=== PATIENT | female | born 1950 | race Caucasian/White ===

== ENCOUNTER → 2016-06-28 | Outpatient (CLI) | payer MEDICARE, MEDICAID ==
[~2016-06-28] MED LIST: B12,B-12,B 12500 MC1 PO; BIAXIN500 MG PO; DIFLUCAN50 MG PO; DUONEB 3 MG/3 ML3 M1 INH; FLONASE ALLERG9.9 ML NS; LEVAQUIN750 M1 PO; LEVOFLOXACIN500 MG PO; LOVASTATIN20 MG PO; MASON NATURAL2000 IU PO; METFORMIN500 MG PO; NOVAPLUS V0.09 MG/Ac IH; PREDNISONE10 MG PO; PREDNISONE50 MG PO; PROAIR HFA8.5 GM IH; ROBITUSSIN5 ML PO; SINGULAIR10 M1 PO; SYMBICORT1 AER INH; VICODIN 500 MG-1 TAB PO; VOLTAREN50 M1 PO
== END | disposition home or self-care (01) ==
LOC: RAD 10:43
DX: M47.896 Other spondylosis, lumbar region (principal); G89.29 Other chronic pain; M25.78 Osteophyte, vertebrae

== ENCOUNTER → 2017-01-25 | Outpatient (CLI) | payer MEDICARE, MEDICAID | END | disposition home or self-care (01) | LOC: RAD 15:50 | DX: M54.2 Cervicalgia (principal); R20.8 Other disturbances of skin sensation ==

== ENCOUNTER → 2017-03-28 | Outpatient (CLI) | payer MEDICARE, MEDICAID | END | disposition home or self-care (01) | LOC: RAD 14:45 | DX: M25.511 Pain in right shoulder (principal) ==

== ENCOUNTER → 2017-04-16 | Outpatient (CLI) | payer MEDICARE, MEDICAID | END | disposition home or self-care (01) | LOC: RAD 16:36 | DX: J20.9 Acute bronchitis, unspecified (principal); E11.9 Type 2 diabetes mellitus without complications; J44.9 Chronic obstructive pulmonary disease, unspecified; J45.909 Unspecified asthma, uncomplicated; F17.200 Nicotine dependence, unspecified, uncomplicated ==

== ENCOUNTER → 2017-04-20 | Outpatient (CLI) | payer MEDICARE, MEDICAID | END | disposition home or self-care (01) | LOC: MRI 03:38 | DX: M19.011 Primary osteoarthritis, right shoulder (principal) ==

== ENCOUNTER → 2017-09-14 | Outpatient (CLI) | payer MEDICARE, MEDICAID ==
[2017-09-14 14:12] LABS: CREATININE 1.19 mg/dL (0.55-1.02)
[2017-09-14 14:19] LABS: THYROID STIM HORMONE (HS) 2.06 uIU/ml (0.358-4.75)
== END | disposition home or self-care (01) ==
LOC: LAB 01:22 → MRI 14:00 → LAB 14:00
PROVIDERS: Psychiatry & Neurology Neurology
DX: G54.0 Brachial plexus disorders (principal); Z79.899 Other long term (current) drug therapy

== ENCOUNTER 2017-12-05 13:32 | Inpatient (IN) | payer MEDICARE, MEDICAID ==
[~2017-12-05] VITALS: Ht 162.5 cm; Wt 86.2 kg
--- NOTE | ~2017-12-05 | PR ---
[place], [place] PROGRESS NOTE NAME: RENETTA KWONG UNIT #: [id number] ROOM: 411 DOCTOR: CRYSTAL WAY MD BIRTHDATE: [birth year] DOS: 12/07/2017 PULMONARY PROGRESS NOTE SUBJECTIVE: The patient was independently seen and examined in [id number] encounter, history was confirmed. Physical examination performed. Labs were reviewed. Note done by the site medical director was approved. The patient was noted comfortable at this time, resting, sitting on the bed. She reported partial reduction in symptoms of shortness of breath, coughing, and other symptoms. She denies symptoms of chest pain, general weakness, and fatigue were noted partially decreased. Continue getting oxygen supplementation by nasal cannula. OBJECTIVE: VITAL SIGNS: Normal temperature, respiratory rate is 20, heart rate is 63, Blood pressure is 129/62 this morning. Pulse ox saturation on 2 liters nasal cannula is 93% saturation recorded. HEENT: On examination, no acute change. Chronic obesity. NECK: Supple. CARDIOVASCULAR SYSTEM: S1, S2 is audible. LUNGS: Moderate general reduction in breath sounds bilaterally, scattered expiratory wheezing, no crackles. ABDOMEN: Soft, nontender. LABORATORY DATA: CBC, WBC count is 16.9, hemoglobin is 10.6, hematocrit is 32.6, and platelet count is normal. The BMP of the patient, BUN is normal, creatinine is 1.88. The glucose is noted as 277. IMPRESSION: 1. The patient has been currently noted with ongoing acute exacerbation of chronic obstructive pulmonary disease with bilateral acute pneumonia, which appeared to be nodular in appearance. 2. Chronic obesity as well. 3. Acute kidney injury, which has resolved markedly. 4. Suspicion of obstructive sleep apnea disorder. PLAN OF MANAGEMENT: Continue current antibiotics, bronchodilators, and oxygen supplementation. Monitor clinical status. Supportive therapy, other plan of management, and care plan. No changes in medication needs to be done today. [place], [place] PROGRESS NOTE NAME: RENETTA KWONG UNIT #: [id number] ROOM: 411 DOCTOR: CRYSTAL WAY MD BIRTHDATE: [birth year] CRYSTAL MALDONADO MD CM:PNTRANS [id number] CRYSTAL WATTS MD 12/08/172 interface
--- NOTE | ~2017-12-05 | PR ---
[place], [place] PROGRESS NOTE NAME: [id number] UNIT #: [id number] ROOM: 411 DOCTOR: JOEL WATTS MD,CRYSTAL BIRTHDATE: [birth year] DOS: 12/08/2017 PULMONARY PROGRESS NOTE SUBJECTIVE: The patient was noted comfortable this morning of assessment. She has been assessed for home oxygen supplementation does require oxygen supplementation at home, but comfortably resting, shortness of breath, cough, all the other symptoms, which has been noted for admission, improved markedly. OBJECTIVE: VITAL SIGNS: Normal temperature, respiratory rate 20, heart rate 70, blood pressure 115/65 this afternoon. The pulse ox saturation on 2 liters nasal cannula 94% saturation. HEENT: Head was atraumatic. Eyes nonicterus. NECK: Supple. CARDIOVASCULAR: S1, S2 audible. LUNGS: Noted without any wheezing or crackles today. ABDOMEN: Soft, nontender, bowel sounds present. EXTREMITIES: The patient noted without acute edema. IMPRESSION: Resolving acute hypoxic respiratory failure, acute exacerbation of chronic obstructive pulmonary disease, history of chronic obesity, nodular infiltration noted on the lungs with acute pneumonia. PLAN OF TREATMENT: The patient has been considered from discharge will require oxygen supplementation, oral antibiotic as Levaquin for the next 7 days. Tapering dose of prednisone, bronchodilators. Abstinence tobacco use. Outpatient assessment was recommended post-discharge in about 3 weeks to reassess in the office for pulmonary problems. CRYSTAL MALDONADO MD CM:PNTRANS [id number] CRYSTAL WATTS MD 12/09/173 interface
--- NOTE | ~2017-12-05 | CON ---
[place], [place] REPORT OF CONSULTATION NAME: RENETTA KWONG [facility] #: [id number] UNIT #: [id number] ROOM: 411 DOCTOR: JOEL WATTS MDCRYSTAL BIRTHDATE: [birth year] DOS: 12/06/2017 PULMONARY CONSULTATION, EVALUATION, AND MANAGEMENT CONSULTATION REQUESTED BY: Hospitalist. REASON FOR CONSULTATION: For assessment of COPD exacerbation. HISTORY OF PRESENT ILLNESS: The patient was independently seen and examined, [id number] encounter, history was confirmed. Physical examination was performed. Labs were personally reviewed. All the radiology data were reviewed. The assessment for today's note was personally completed. Note done by the medical physiologist was approved as well. This is a 67-year-old white female patient who presented to the hospital and admitted under the hospitalist service on the date of 12/05/2017. The patient presented to the hospital as she has been reported symptoms of chest congestion and cold for the past several days. The symptoms have been noted progressively worsened. She was seen by the primary care physician was prescribed an antibiotic, which noted ineffective. Symptoms have been noted progressive for the last couple of days prior to the hospitalization. The patient had been currently admitted to the hospital, being started treatment for the acute exacerbation of COPD. The patient denies symptoms of fever or chills with that, but general weakness, fatigue was noted. She was also noted with acute pneumonic infiltration with a chest CT scan as well. REVIEW OF SYSTEMS: CONSTITUTIONAL: She does have symptoms of fatigue and tiredness without symptoms of chills or fever. EYES: Denies any burning, redness, or tenderness. EARS, NOSE, AND THROAT: Denies sore throat, hoarseness, otalgia, postnasal drainage or epistaxis. CARDIOVASCULAR: Denies anginal pain, edema, pain of the lower extremity. GASTROINTESTINAL: Denies dysphagia, nausea, vomiting, diarrhea, abdominal pain, hematemesis, melena, or hematochezia. SKIN: Denies abnormal lesions or rashes. GENITOURINARY SYMPTOMS: No dysuria and suprapubic hematuria. MUSCULOSKELETAL: No acute joint pain, redness, or tenderness. CENTRAL NERVOUS SYSTEM: Denies dizziness Headache, diplopia, syncopal episode. Remaining systems were reviewed. They were noted all negative. PAST MEDICAL HISTORY: 1. COPD diagnosis. 2. Type 2 diabetes mellitus. 3. History of Hodgkin's lymphoma, previously treated. 4. Essential hypertension. 5. Hyperglycemia. 6. Chronic obesity. [place], [place] REPORT OF CONSULTATION NAME: RENETTA KWONG [facility] #: [id number] UNIT #: [id number] ROOM: 411 DOCTOR: JOEL WATTS MD,CRYSTAL BIRTHDATE: [birth year] PAST SURGICAL HISTORY: 1. Complete hysterectomy. 2. Right knee arthroscopy. 3. Bilateral hand surgery. SOCIAL HISTORY: She is , has 1 child, lives at home. Denies history of alcohol use or any illicit drugs. Tobacco use was known with chronic tobacco use in the past, but currently denies any tobacco use. FAMILY HISTORY: History about father was unknown. Mother at 86 of complication of dementia. HOME MEDICATIONS: Listed use of Symbicort HFA, albuterol sulfate, DuoNeb, lovastatin, metformin, Singulair, Flonase, and diclofenac. DRUG ALLERGIES: Noted allergies: 1. NYQUIL. 2. CODEINE PHOSPHATE. PHYSICAL EXAMINATION: GENERAL: This is a 67-year-old female the patient who has been noted currently awake and alert without acute distress at this time of assessment. VITAL SIGNS: Height were recorded by the nursing staff of 5 feet 4 inches, weight of 190 pounds. Normal temperature, respiratory rate 18-16, heart rate 64-93, blood pressure 111/34-125/48. The pulse ox saturation on 2 liters nasal cannula was 93% saturation. Resting room air 90% saturation. HEENT: Chronic moderate obesity. Head was atraumatic. Eyes nonicterus. NECK: Supple. CARDIOVASCULAR: S1, S2 audible. LUNGS: Noted bilateral diffuse expiratory wheezing with decreased breath sounds. There were no crackles. ABDOMEN: Soft and obese. Bowel sounds present. EXTREMITIES: Without edema, clubbing, cyanosis. VISIBLE SKIN: No lesions or rashes. CENTRAL NERVOUS SYSTEM: Cranial nerves 2-12 intact. MUSCULOSKELETAL: Without any deformities. LABORATORY DATA: Lactic acid yesterday 1.7, that were normal. CBC, sed admission elevated white cell count 20.6, otherwise normal CBC. CMP of yesterday on admission, BUN 14, creatinine 1.9. Troponin noted normal. CBC of the patient this morning, WBC count 14.9, hemoglobin 11.1, remaining CBC normal. CMP this morning, BUN 16, creatinine 1.10, glucose 254. The chest x-ray that was done in the Emergency Room was reviewed, shows patchy infiltration noted in the lungs. CT scan of the chest that was done on this admission of 12/06/2007 was personally reviewed and it shows patchy area, small consolidation, nodular opacity noted predominantly in the left upper, lingula, and lower lobe. The right lung appeared to be clear. Lack of the IV contrast, the patient does limit the assessment of the mediastinal structure. There was no gross lymphadenopathy was seen. [place], [place] REPORT OF CONSULTATION NAME: RENETTA KWONG UNIT #: [id number] ROOM: 411 DOCTOR: JOEL WATTS MD,CRYSTAL BIRTHDATE: [birth year] IMPRESSION: 1. The patient who has been currently admitted to the hospital noted with acute exacerbation of chronic obstructive pulmonary disease, acute bronchitis, and pneumonia. The patient with atypical etiology would be considered, failed to respond to the outpatient treatment. General weakness and fatigue related to that. Acute kidney injury was also noted secondary to prerenal azotemia. The patient seemed to be improved after the hospitalization with hydration. 2. History of chronic obesity. 3. Suspicion of obstructive sleep apnea disorder. 4. History of nicotine abuse. PLAN OF MANAGEMENT: Workup for the atypical etiology for infection would be ordered. Ordered sputum for Gram stain and culture. Urine for legionella antigen and blood for mycoplasma antibody, and the urine for strep antigen will be ordered. Other additional treatment changes will be ordered based on progression of the illness. Titrate oxygen supplementation in case of oxygen saturation less than 90%. Continue nicotine placement patches and other plan therapy for the patient's care as in progress with usual care. Other supportive plan of management and treatments. Change in the treatment will be made based on progression of the illness. Respiratory viral panel will be ordered to exclude viral etiology. Solu-Medrol, will be currently continued same dose. Monitor treatment of the hyperglycemia related to use of corticosteroid and diabetes mellitus. CRYSTAL MALDONADO MD CM:CONSTR:REPORT OF CONSULTATION 1310 12/17/17 0825 interface
--- NOTE | ~2017-12-05 | CON ---
[place], [place] REPORT OF CONSULTATION NAME[id number] UNIT #: [id number] ROOM: 411 DOCTOR: ALLAN BAGLEY DO BIRTHDATE: [birth year] DOS: 12/06/2017 REQUESTING PHYSICIAN: Hospitalist service. REASON FOR CONSULTATION: Acute exacerbation of COPD. HISTORY OF PRESENT ILLNESS: The patient is a 67-year-old female who presented to the ED on 12/05/2017 due to numerous complaints that include generalized weakness and shortness of breath. The patient states that 4 days ago, this weekend, she started experiencing nausea and soreness of her throat and this progressed with sneezing, rhinitis and coughing productive for green sputum. The following day, she felt weak, fatigued and without energy. She subsequently presented to her primary care provider who prescribed her a course of azithromycin. Despite this, her symptoms did not improve and she, therefore, presented to the ED yesterday on 12/05/2017 due to her worsening symptoms. The patient denies use of home oxygen. 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 She states that at home, she uses Symbicort and a Ventolin inhaler p.r.n. as well as nebulizer albuterol treatments. Chest x-ray obtained in the ED showed retrosternal pleural thickening, but otherwise unremarkable findings. The patient was admitted to the general medical floor with telemetry monitoring for treatment of sepsis secondary to pneumonitis and an acute exacerbation of COPD. The Pulmonary Medicine Service was consulted for further management of the patient's suspected acute exacerbation of COPD. PAST MEDICAL HISTORY: This includes COPD, type 2 diabetes, hypertension, history of Hodgkin's lymphoma, reportedly treated 30 years ago with chemotherapy, neuropathic pain and history of avascular necrosis of the lunate. PAST SURGICAL HISTORY: This includes history of a surgical repair of a patellar fracture of the right knee, history of hysterectomy and history of bilateral hand surgery. FAMILY HISTORY: The patient reports her mother at age 86 from dementia and her past medical history included history of diabetes and heart disease. The patient reports that her father was unknown to her. ALLERGIES: THESE INCLUDE ALLERGIES TO CODEINE, TO DEXTROMETHORPHAN, TO PSEUDOEPHEDRINE AND TO DOXYLAMINE. SOCIAL HISTORY: The patient denies use of alcohol or any abuse of illicit drugs. She denies use of tobacco. CURRENT MEDICATIONS: These include IV Levaquin 750 mg every 48 hours, Nicoderm patch 14 mg daily as needed for the urge to smoke, guaifenesin 1200 mg every 12 hours, levocetirizine 5 mg daily, Singulair 10 mg daily, subcutaneous Lovenox 40 mg daily, IV normal saline at 100 mL an hour, gabapentin 300 mg before bed, simvastatin 20 mg before bed, IV Solu-Medrol 40 mg every 12 hours, sliding scale insulin and DuoNeb treatments every 4 hours. REVIEW OF SYSTEMS: [place], [place] REPORT OF CONSULTATION NAME: RENETTA KWONG UNIT #: [id number] ROOM: 411 DOCTOR: ALLAN BAGLEY DO BIRTHDATE: [birth year] GENERAL: Denies fever or chills. HEENT: Admits to worsening vision, which is a chronic issue for her. Denies changes in hearing. Denies eye pain. Denies ear pain. Admits to sore throat and admits to sneezing. Admits to rhinitis. CARDIOVASCULAR: Denies chest pain. Admits to palpitations. Denies diaphoresis. RESPIRATORY: Admits to shortness of breath. Admits to dyspnea on exertion. Admits to coughing productive for green sputum. Admits to wheezing. ABDOMEN: Admits to nausea. Denies vomiting. Denies abdominal pain. Denies constipation. Denies diarrhea, melena or hematochezia. GENITOURINARY: Denies dysuria, hematuria, increased urinary frequency or urgency. NEUROLOGIC: Denies lightheadedness or dizziness. PSYCHOLOGICAL: Denies anxiety, depression or substance abuse. ENDOCRINE: Denies cold intolerance. Denies heat intolerance. SKIN: Denies any new rashes, lesions or ulcerations. PHYSICAL EXAMINATION: VITAL SIGNS: Temperature 97.6 degrees Fahrenheit, heart rate 64, respiratory rate 20, blood pressure 92/50, pulse oximetry 91% on 2 liters via nasal cannula. GENERAL APPEARANCE: The patient was awake, alert, responsive, cooperative and in no acute distress. HEENT: Head was normocephalic and atraumatic. No lesions or ulcerations were noted to eyes. NECK: Trachea appears midline. HEART: Regular rate and rhythm were noted. Positive S1, S2 sounds were heard. No murmurs, rubs or gallops were appreciated. Bilateral lower extremities were without edema. PULMONARY: Lungs with decreased breath sounds. Wheezing was heard. No rhonchi or rales were appreciated. ABDOMEN: Soft, nontender to palpation. Bowel sounds were present. The abdomen was obese. EXTREMITIES: Bilateral lower extremities were without edema. No clubbing, cyanosis or erythema was noted. NEUROLOGIC: The patient was grossly without any focal neurologic deficits. Cranial nerves 2-12 were grossly intact. PSYCHOLOGICAL: The patient was with a normal mood and affect. She was a fair historian. SKIN: Warm and dry without any induration or erythema. LABORATORY DATA: CBC from today shows white count at 14.9, hemoglobin 11.1, hematocrit 34.9 and platelets 211. Chemistries from today shows sodium 139, potassium 4.3, chloride 108, bicarbonate 24, BUN 16, creatinine 1.10, glucose 254, hemoglobin A1c 6.7. Calcium 8.2, phosphorus 2.5, magnesium 2.0, total bilirubin 0.2, AST 11, ALT 21, alkaline phosphatase 74, total protein 6.9 and albumin 3.0. Lipid panel appears unremarkable. Vitamin B12 1151, vitamin D 21.4, folate 8.41, TSH 0.215, free T4 0.99. SEROLOGIES: Urinary legionella antigen and urinary strep pneumo antigens are pending. [place], [place] REPORT OF CONSULTATION NAME: RENETTA KWONG [id number] UNIT #: [id number] ROOM: [employer] DOCTOR: ALLAN BAGLEY DO BIRTHDATE: [birth year] MICROBIOLOGY: Blood cultures obtained on admission are pending. IMAGING STUDIES: Chest x-ray obtained 12/05/2017 showed retrosternal pleural thickening, but otherwise unremarkable findings. Chest CT obtained yesterday on 12/05/2017 without contrast showed patchy areas of alveolar consolidation or pneumonia in the left upper lobe and the left lower lobe. IMPRESSION: 1. Acute exacerbation of chronic obstructive pulmonary disease. 2. Suspected pneumonia. 3. Obesity. 4. Leukocytosis. 5. Normocytic anemia. 6. Lymphopenia. 7. Hyperchloremia. 8. Hyperglycemia. 9. Moderate protein calorie malnutrition. 10. Hypervitaminosis of vitamin B12. 11. Vitamin D deficiency. 12. Subclinical hypothyroidism. 13. Chronic kidney disease, likely stage 3. 14. Chronic obstructive pulmonary disease. 15. Type 2 diabetes. 16. Hypertension. 17. History of Hodgkin's lymphoma. 18. Neuropathic pain. PLAN OF MANAGEMENT: The patient is currently on IV Levaquin, IV Solu-Medrol and guaifenesin as well as bronchodilator therapy. She is also on nicotine supplementation therapy as needed. Serologies for urinary legionella and strep pneumo antigens are pending as well as serologies for Mycoplasma pneumoniae. Blood cultures are also pending. Sputum cultures have been ordered. Supplemental oxygen should be titrated to maintain pulse oximetry at 92% or greater. Pulmonary medicine will continue to follow. Allan Bagley DO [place], [place] REPORT OF CONSULTATION NAME: RENETTA KWONG [facility] UNIT #: [id number] ROOM: [employer] DOCTOR: ALLAN BAGLEY DO BIRTHDATE: [birth year] CRYSTAL MALDONADO MD CM:CONSTR:REPORT OF CONSULTATION 1324 12/06/17 1458 interface
--- NOTE | ~2017-12-05 | EKG ---
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
--- NOTE | ~2017-12-05 | PR ---
[place], [place] PROGRESS NOTE NAME: RENETTA KWONG [facility] #: [id number] UNIT #: [id number] ROOM: 411 DOCTOR: ALLAN BAGLEY DO BIRTHDATE: [birth year] DOS: 12/07/2017 SUBJECTIVE: The patient was seen and examined at the bedside today. She reports experiencing wheezing as well as a cough productive for green sputum in the evenings and mornings. Overall, she believes that her shortness of breath is improving. She denies fevers, chills, chest pain, nausea, vomiting, abdominal pain or any changes in bowel or bladder habits. OBJECTIVE: VITAL SIGNS: Show temperature 97.5 degrees Fahrenheit, heart rate 63, respiratory rate 20, blood pressure 129/62, pulse oximetry 99% on 2 liters via nasal cannula. GENERAL APPEARANCE: The patient was awake, alert, responsive, cooperative and in no acute distress. HEENT: Head was normocephalic and atraumatic. No lesions or ulcerations were noted to lyse. NECK: Trachea appears midline. HEART: Regular rate and rhythm were noted. Positive S1, S2 sounds were heard. No murmurs, rubs or gallops were appreciated. Bilateral lower extremities were without edema. PULMONARY: Lungs with diminished breath sounds. Wheezing was heard. No rhonchi or rales were appreciated. ABDOMEN: Soft, nontender to palpation. Bowel sounds were present. The abdomen was obese. EXTREMITIES: Bilateral lower extremities were without edema. No clubbing, cyanosis or erythema was noted. LABORATORY DATA: CBC from today shows white count 16.9, hemoglobin 10.6, hematocrit 32.6, platelets 196. Chemistries from today show sodium 142, potassium 4.7, chloride 111, bicarbonate 27, BUN 17, creatinine 1.08, glucose 277, calcium 8.1. In terms of serologies a respiratory viral panel is pending. Urinary antigens for legionella and strep pneumo are pending and antibodies for Mycoplasma pneumoniae are likewise pending. In terms of microbiology, blood cultures obtained on admission are still pending and sputum is still uncollected. IMPRESSION: 1. Acute exacerbation of chronic obstructive pulmonary disease. 2. Pneumonia. 3. Obesity. 4. Suspicion for obstructive sleep apnea. 5. History of tobacco abuse. 6. Leukocytosis. 7. Normocytic anemia. 8. Lymphopenia. 9. Hyperchloremia. 10. Hyperglycemia. PLAN OF MANAGEMENT: Serologies are pending as well as sputum for Gram stain and culture. The patient's supplemental oxygen should be titrated to maintain a [place], [place] PROGRESS NOTE NAME: RENETTA KWONG UNIT #: [id number] ROOM: [facility] DOCTOR: ALLAN BAGLEY DO BIRTHDATE: [birth year] pulse oximetry of 92% or greater. The patient is currently on IV Levaquin, IV Solu-Medrol, bronchodilator therapy, guaifenesin and as needed nicotine supplementation therapy. Pulmonary Medicine will continue to follow. Allan Bagley DO CRYSTAL MALDONADO MD CM:TIMOTHY 1131 [id number] ALLAN BAGLEY DO 12/07/17 1200 interface
[2017-12-05 13:35] VITALS: BP 111/34
[2017-12-05 14:22] LABS: BASO # 0.1 10*3/uL (0.0-0.1); BASO % 0.3 % (0.0-1.0); LYMPH # 1.8 10*3/uL (1.3-4.4); LYMPH % 8.7 % (27.0-41.0); MEAN CELL VOLUME 89.4 fl (81.0-99.0); MEAN CORPUSCULAR HGB 29.8 pg (27.0-31.0); MEAN CORPUSCULAR HGB CONC 33.3 g/dl (33.0-37.0); MEAN PLATELET VOLUME 10.9 fl (9.6-12.3); NEUT # 17.6 10*3/uL (2.3-7.9); NEUT % 85.6 % (47.0-73.0); PLATELET COUNT AUTOMATED 236 10*3/uL (130-400); RED BLOOD COUNT 4.36 10*6/uL (4.10-5.10); RED CELL DISTRI WIDTH 14.6 % (0-14.5); WHITE BLOOD COUNT 20.6 10*3/uL (4.8-10.8)
[2017-12-05 14:38] LABS: ALBUMIN 3.5 gm/dl (3.1-4.5); ALKALINE PHOSPHATASE 91 U/L (45-117); BUN 14 mg/dl (7-24); CHLORIDE 102 mmol/L (98-107); CREATININE 1.29 mg/dL (0.55-1.02); POTASSIUM 4.3 mmol/L (3.5-5.1); SGOT/AST 11 IU/L (3-35); SGPT/ALT 22 U/L (12-78); SODIUM 137 mmol/L (136-145); TOTAL PROTEIN 7.7 gm/dL (6.4-8.2)
[2017-12-05 14:40] LABS: TROPONIN I < 0.015 ng/ml (<0.045)
[2017-12-05 15:29] VITALS: BP 136/63
[2017-12-05 16:00] VITALS: BP 126/59
[2017-12-05] MEDS ORDERED: GLUCOTROL10 MG PO (17:46)
[2017-12-05] MEDS ORDERED: MELATONIN10 M2 PO (17:47)
[2017-12-05] MEDS ORDERED: ZESTRIL2.5 MG PO (17:47)
[2017-12-05] MEDS ORDERED: TRULICITY0.75 MG/0. SC (17:51)
[2017-12-05] MEDS ORDERED: XYZAL5 M1 PO (17:52)
[2017-12-05] MEDS ORDERED: CELEBREX50 MG PO (17:53)
[2017-12-05] MEDS ORDERED: GRALISE300 M1 PO (17:54)
[2017-12-05 20:00] VITALS: BP 120/45
[2017-12-06] VITALS: BP 138/39
[2017-12-06 06:42] LABS: HEMATOCRIT 34.9 % (37.0-47.0); HEMOGLOBIN 11.1 g/dl (12.0-16.0); MEAN CORPUSCULAR HGB 29.6 pg (27.0-31.0); MEAN CORPUSCULAR HGB CONC 31.8 g/dl (33.0-37.0); MEAN PLATELET VOLUME 11.4 fl (9.6-12.3); PLATELET COUNT AUTOMATED 211 10*3/uL (130-400); RED BLOOD COUNT 3.75 10*6/uL (4.10-5.10); RED CELL DISTRI WIDTH 14.6 % (0-14.5); WHITE BLOOD COUNT 14.9 10*3/uL (4.8-10.8)
[2017-12-06 06:53] LABS: CREATININE 1.1 mg/dL (0.55-1.02); PHOSPHOROUS 2.5 mg/dL (2.5-4.9); POTASSIUM 4.3 mmol/L (3.5-5.1); TOTAL PROTEIN 6.9 gm/dL (6.4-8.2)
[2017-12-06 06:54] LABS: MEAN CELL VOLUME 93.1 fl (81.0-99.0)
[2017-12-06 06:57] LABS: FREE T4 0.99 ng/dl (0.76-1.46); THYROID STIM HORMONE (HS) 0.215 uIU/ml (0.358-4.75)
[2017-12-06 07:32] LABS: PLATELET SUFFICIENCY NORMAL (NORMAL); TOTAL CELLS COUNTED 100 #CELLS
[2017-12-06 07:57] LABS: VITAMIN D, 25-HYDROXY 21.4 ng/mL (30-100)
[2017-12-06 08:00] VITALS: BP 122/56; BP 92/50
[2017-12-06 12:00] VITALS: BP 125/48
[2017-12-06 16:00] VITALS: BP 135/58
[2017-12-06 20:00] VITALS: BP 131/47
[2017-12-07] VITALS: BP 79/44
[2017-12-07 05:51] LABS: BUN 17 mg/dl (7-24); CHLORIDE 111 mmol/L (98-107); CREATININE 1.08 mg/dL (0.55-1.02); POTASSIUM 4.7 mmol/L (3.5-5.1); SODIUM 142 mmol/L (136-145)
[2017-12-07 05:54] LABS: HEMATOCRIT 32.6 % (37.0-47.0); HEMOGLOBIN 10.6 g/dl (12.0-16.0); MEAN CELL VOLUME 93.7 fl (81.0-99.0); MEAN CORPUSCULAR HGB 30.5 pg (27.0-31.0); MEAN CORPUSCULAR HGB CONC 32.5 g/dl (33.0-37.0); MEAN PLATELET VOLUME 11.4 fl (9.6-12.3); PLATELET COUNT AUTOMATED 196 10*3/uL (130-400); RED BLOOD COUNT 3.48 10*6/uL (4.10-5.10); RED CELL DISTRI WIDTH 14.8 % (0-14.5); WHITE BLOOD COUNT 16.9 10*3/uL (4.8-10.8)
[2017-12-07 07:19] LABS: PLATELET SUFFICIENCY NORMAL (NORMAL); TOTAL CELLS COUNTED 100 #CELLS
[2017-12-07 08:00] VITALS: BP 129/62
[2017-12-07 12:00] VITALS: BP 138/60
[2017-12-07 13:06] LABS: MYCOPLASMA PNEUMONIAE IGG 195 U/mL (0-99); MYCOPLASMA PNEUMONIAE IGM <770 U/mL (0-769)
[2017-12-07 15:43] VITALS: BP 121/63
[2017-12-07 20:00] VITALS: BP 152/53
[2017-12-08] VITALS: BP 145/58
[2017-12-08 06:47] LABS: HEMATOCRIT 34.6 % (37.0-47.0); HEMOGLOBIN 10.8 g/dl (12.0-16.0); MEAN CELL VOLUME 94.3 fl (81.0-99.0); MEAN CORPUSCULAR HGB 29.4 pg (27.0-31.0); MEAN CORPUSCULAR HGB CONC 31.2 g/dl (33.0-37.0); MEAN PLATELET VOLUME 11.7 fl (9.6-12.3); PLATELET COUNT AUTOMATED 217 10*3/uL (130-400); RED BLOOD COUNT 3.67 10*6/uL (4.10-5.10); RED CELL DISTRI WIDTH 14.7 % (0-14.5); WHITE BLOOD COUNT 13.7 10*3/uL (4.8-10.8)
[2017-12-08 07:11] LABS: TOTAL CELLS COUNTED 100 #CELLS
[2017-12-08 07:12] LABS: PLATELET SUFFICIENCY NORMAL (NORMAL)
[2017-12-08 07:25] LABS: CREATININE 1.15 mg/dL (0.55-1.02); POTASSIUM 4.4 mmol/L (3.5-5.1); TOTAL PROTEIN 6.7 gm/dL (6.4-8.2)
[2017-12-08 08:00] VITALS: BP 116/70
[2017-12-08 12:00] VITALS: BP 159/65
[2017-12-08] MEDS ORDERED: LEVAQUIN750 M1 PO (13:13)
[2017-12-08] MEDS ORDERED: PREDNISONE10 MG PO (13:13)
[2017-12-08] MEDS ORDERED: NORVASC5 MG PO (13:16)
[2017-12-11 11:05] LABS: ADENOVIRUS Negative (Negative); INFLUENZA A Negative (Negative); INFLUENZA B Negative (Negative); METAPNEUMOVIRUS Negative (Negative); PARAINFLUENZA 1 Negative (Negative); PARAINFLUENZA 2 Negative (Negative); PARAINFLUENZA 3 Negative (Negative); RHINOVIRUS Positive (Negative); RSV A Negative (Negative); RSV B Negative (Negative)
[2018-01-02] MEDS ORDERED: PROVENTIL HFA6.7 GM INH (12:54)
[2018-01-02] MEDS ORDERED: PROAIR HFA8.5 GM INH (12:54)
[2018-01-02] MEDS ORDERED: ACCUNEB 0.1.25 MG/1 NEB (12:55)
[2018-01-02] MEDS ORDERED: TYLENOL325 M1 PO (12:56)
[2018-01-08] MEDS ORDERED: ELIQUIS5 M1 PO (13:44)
[2018-01-08] MEDS ORDERED: OXYGEN NAS (13:46)
== END 2017-12-08 15:40 | disposition home or self-care (01) | DRG 871 ==
LOC: ED 13:32 → EDHOLD 15:24 → 4E 15:24
PROVIDERS: Internal Medicine; Internal Medicine Critical Care Medicine; Internal Medicine Nephrology; Nurse Practitioner Family; Registered Nurse
DX: A41.9 Sepsis, unspecified organism (principal); J18.9 Pneumonia, unspecified organism; J96.01 Acute respiratory failure with hypoxia; J44.1 Chronic obstructive pulmonary disease with (acute) exacerbation; E44.0 Moderate protein-calorie malnutrition; J44.0 Chronic obstructive pulmonary disease with (acute) lower respiratory infection; N17.9 Acute kidney failure, unspecified; E78.00 Pure hypercholesterolemia, unspecified; F17.210 Nicotine dependence, cigarettes, uncomplicated; Z96.651 Presence of right artificial knee joint; N18.3 Chronic kidney disease, stage 3 (moderate); I12.9 Hypertensive chronic kidney disease with stage 1 through stage 4 chronic kidney disease, or unspecified chronic kidney disease; E66.8 Other obesity; D64.9 Anemia, unspecified; E87.8 Other disorders of electrolyte and fluid balance, not elsewhere classified; J20.9 Acute bronchitis, unspecified; E09.65 Drug or chemical induced diabetes mellitus with hyperglycemia; T38.0X5A Adverse effect of glucocorticoids and synthetic analogues, initial encounter; E67.8 Other specified hyperalimentation; E55.9 Vitamin D deficiency, unspecified; E02 Subclinical iodine-deficiency hypothyroidism; E10.22 Type 1 diabetes mellitus with diabetic chronic kidney disease; E10.40 Type 1 diabetes mellitus with diabetic neuropathy, unspecified; Z83.3 Family history of diabetes mellitus; Z82.0 Family history of epilepsy and other diseases of the nervous system; Z88.8 Allergy status to other drugs, medicaments and biological substances; Z88.6 Allergy status to analgesic agent; Z79.899 Other long term (current) drug therapy; Z90.710 Acquired absence of both cervix and uterus; Z80.3 Family history of malignant neoplasm of breast; Z87.01 Personal history of pneumonia (recurrent); Y92.89 Other specified places as the place of occurrence of the external cause; Z92.21 Personal history of antineoplastic chemotherapy; Z68.32 Body mass index [BMI] 32.0-32.9, adult

== ENCOUNTER → 2018-03-29 | Outpatient (CLI) | payer MEDICARE, MEDICAID ==
[~2018-03-29] MED LIST changes: +ACCUNEB 0.1.25 MG/1 NEB; +CELEBREX50 MG PO; +ELIQUIS5 M1 PO; +GLUCOTROL10 MG PO; +GRALISE300 M1 PO; +MELATONIN10 M2 PO; +NORVASC5 MG PO; +OXYGEN NAS; +PROAIR HFA8.5 GM INH; +PROVENTIL HFA6.7 GM INH; +TRULICITY0.75 MG/0. SC; +TYLENOL325 M1 PO; +XYZAL5 M1 PO; +ZESTRIL2.5 MG PO
--- NOTE | ~2018-03-29 | ST ---
[place], [place] EXERCISE STRESS TEST REPORT NAME: RENETTA KWONG [facility] #: [id number] UNIT #: [id number] ROOM: DOCTOR: YUDI CORDON MD BIRTHDATE: [birth year] DOS: 03/29/2018 INDICATIONS: Severe carotid stenosis, preoperative assessment prior to endarterectomy, dyspnea on exertion. PROCEDURE: The patient was given a rapid infusion of regadenoson 0.4 mg intravenously followed by a saline flush. She felt lightheaded and mildly short of breath, but had no other symptoms. Her resting heart rate of 66 raul to 104. The resting blood pressure 136/62 fell to 120/62. Forty seconds after the infusion of regadenoson, she was given radionuclide intravenously. IMPRESSION: 1. Well tolerated infusion of regadenoson. 2. Radionuclide administered. Please see the separate imaging report for further details of the patient's stress test results. YUDI CORDON MD CM:STRESS:EXERCISE STRESS TEST REPORT [id number] YUDI CORDON MD
--- NOTE | 2018-03-29 11:00 | NUR ---
INFORMED SIGNED CONSENT OBTAINED FOR LEXISCAN STRESS TEST WITH DR CORDON. RESTING EKG NSR HR 66 COKE PRODUCTION HEATER 136/62. PULSE OX 100% ON 2L, LUNGS CLEAR. PT COMPLETED ONE MINUTE OF A LEXISCAN PROTOCOL WITH PT RECEIVING LEXISCAN 0.4MG IV OVER 10 SECONDS[address] NO ARRHYTHMIAS OR ST CHAGNES NOTED. PT C/O LIGHTHEADED AND SOB WITH INJECTION. LAST RECOVERY HR OF 97 BP 120/62. PT IN STABLE CONDITION AWAITING NUCLEAR IMAGES.
== END | disposition home or self-care (01) ==
LOC: CARD 00:11
DX: Z01.810 Encounter for preprocedural cardiovascular examination (principal); I65.22 Occlusion and stenosis of left carotid artery; R06.02 Shortness of breath

== ENCOUNTER → 2019-05-07 | Day surgery (SDC) | payer MEDICARE, MEDICAID ==
[~2019-05-07] VITALS: Ht 160 cm; Wt 83.9 kg
[~2019-05-07] MED LIST changes: +OCUFLOX 0.3% 5 M5 ML OD; +PRED FORTE5 ML OD
[2019-05-07 07:45] VITALS: BP 121/66
[2019-05-07 09:49] VITALS: BP 140/69
[2019-05-07 10:04] VITALS: BP 140/69
[2019-05-07 10:19] VITALS: BP 141/69
== END | disposition home or self-care (01) ==
LOC: SDC 05-02 10:15
DX: H25.811 Combined forms of age-related cataract, right eye (principal); E11.36 Type 2 diabetes mellitus with diabetic cataract; J44.9 Chronic obstructive pulmonary disease, unspecified; E78.00 Pure hypercholesterolemia, unspecified; Z98.890 Other specified postprocedural states; Z79.899 Other long term (current) drug therapy; Z87.891 Personal history of nicotine dependence; Z83.3 Family history of diabetes mellitus; Z82.49 Family history of ischemic heart disease and other diseases of the circulatory system

== ENCOUNTER → 2019-07-09 | Day surgery (SDC) | payer MEDICARE, MEDICAID ==
[~2019-07-09] VITALS: Ht 160 cm; Wt 83.9 kg
[~2019-07-09] MED LIST changes: +ADVAIR HFA 115-12 GM INH; +ASPIRIN CHEWABL81 MG PO; +Ipratropium Brom3 ML INH
[2019-07-09 07:45] VITALS: BP 129/62
[2019-07-09 09:37] VITALS: BP 121/99
[2019-07-09 09:50] VITALS: BP 151/57
[2019-07-09 10:01] VITALS: BP 120/64
== END | disposition home or self-care (01) ==
LOC: SDC 05-29 09:30
DX: H25.812 Combined forms of age-related cataract, left eye (principal); E11.36 Type 2 diabetes mellitus with diabetic cataract; J44.9 Chronic obstructive pulmonary disease, unspecified; F17.210 Nicotine dependence, cigarettes, uncomplicated; Z98.890 Other specified postprocedural states; Z79.899 Other long term (current) drug therapy; Z83.3 Family history of diabetes mellitus; Z82.49 Family history of ischemic heart disease and other diseases of the circulatory system

== ENCOUNTER 2019-12-08 15:53 | Inpatient (IN) | payer MEDICARE, MEDICAID ==
[~2019-12-08] VITALS: Ht 162.6 cm; Wt 80.3 kg
[2019-12-08 16:15] VITALS: BP 149/68
[2019-12-08 16:48] LABS: BASO # 0.1 10*3/uL (0.0-0.1); BASO % 0.3 % (0.0-1.0); EOS % 0.1 % (1.0-4.0); HEMATOCRIT 37.4 % (37.0-47.0); LYMPH # 1.6 10*3/uL (1.3-4.4); LYMPH % 8.5 % (27.0-41.0); MEAN CELL VOLUME 87.8 fl (81.0-99.0); MEAN CORPUSCULAR HGB 27.7 pg (27.0-31.0); MEAN CORPUSCULAR HGB CONC 31.6 g/dl (33.0-37.0); MEAN PLATELET VOLUME 11.2 fl (9.6-12.3); MONO % 5.4 % (3.0-9.0); NEUT # 16.1 10*3/uL (2.3-7.9); NEUT % 85.2 % (47.0-73.0); PLATELET COUNT AUTOMATED 256 10*3/uL (130-400); RED BLOOD COUNT 4.26 10*6/uL (4.10-5.10); RED CELL DISTRI WIDTH 14.9 % (0-14.5); WHITE BLOOD COUNT 18.8 10*3/uL (4.8-10.8)
[2019-12-08 16:59] LABS: ACT PARTIAL THROMBO TIME 30.7 SECONDS (20.0-32.1); INTERNATIONAL NORM RATIO 1.1 (2.0-3.5)
[2019-12-08 17:12] LABS: ALBUMIN 3.4 gm/dl (3.1-4.5); ALKALINE PHOSPHATASE 96 U/L (45-117); BUN 14 mg/dl (7-24); CHLORIDE 105 mmol/L (98-107); CREATININE 1.14 mg/dL (0.55-1.02); LIPASE 243 U/L (73-393); POTASSIUM 4.5 mmol/L (3.5-5.1); SGOT/AST 7 IU/L (3-35); SGPT/ALT 12 U/L (12-78); SODIUM 137 mmol/L (136-145); TOTAL PROTEIN 7.6 gm/dL (6.4-8.2); TROPONIN I < 0.015 ng/ml (<0.045)
--- NOTE | 2019-12-08 18:36 | NUR ---
MARICEL(PT'S GRANDDAUGHTER)UPDATED ON PT'S CONDITION,MARICEL PHONE NUMBER @ [phone] FOR CONTACT INFORMATION.
[2019-12-08] MEDS ORDERED: VITAMIN D3125 MCG PO (19:52)
[2019-12-08] MEDS ORDERED: PHARMASSURE V500 MCG PO (19:53)
[2019-12-08 19:54] VITALS: BP 153/65
--- NOTE | 2019-12-08 20:41 | NUR ---
PT STILL UNABLE TO VOID.
[2019-12-08 20:50] VITALS: BP 150/65
--- NOTE | 2019-12-08 20:50 | NUR ---
A 69, admitted to 4E, under the services of MAX Ferrer DO with a diagnosis of CELLULITIS OF LEFT UPPER EXTREMITY/SEPSIS/NAUSEA & VOMITING/ABDOMINAL PAIN. Chief complaint is WEAKNESS. Patient arrived via stretcher from ER. Monitor applied. Initial assessment completed. Vital signs taken and recorded. MAX FERRER DO notified of admission to the unit. Orders received. See assessment for past medical history, medications and allergies. Patient and/or family oriented to unit. visitation policy reviewed. Clothing/patient valuable form completed. YOLANDA JI
[2019-12-08] MEDS ORDERED: VENT7GM INH (22:00)
--- NOTE | 2019-12-08 22:06 | NUR ---
MED REC UP TO DATE. DR. VIOLA RIBEIRO.
[2019-12-08 22:20] LABS: BILIRUBIN Negative (Negative); BLOOD Negative (Negative); CLARITY Turbid (Clear); COLOR Yellow (Yellow); GLUCOSE Negative (Negative); KETONE Negative (Negative); LEUKO ESTERASE Trace (Negative); NITRITE Negative (Negative); PH 5.5 (4.5-8.0); SPECIFIC GRAVITY 1.015 (1.001-1.030); UROBILINOGEN 0.2 E.U./dl (0.0-1.0)
[2019-12-08 22:41] LABS: BACTERIA 2+
[2019-12-09] VITALS: BP 156/59
--- NOTE | 2019-12-09 01:00 | NUR ---
SLEEPING. RESPERS EASY AND REGULAR ON 2L O2 VIA NC. CALL LIGHT IS WITHIN REACH.
--- NOTE | 2019-12-09 04:37 | NUR ---
SLEEPING. RESPERS EASY AND REGULAR ON 2L O2 VIA NC. CALL LIGHT IS WITHIN REACH.
--- NOTE | 2019-12-09 04:52 | NUR ---
[facility] FOR ORDER CLARIFICATION ON ALBUTEROL, MOBIC, AND ELIQUIS. CALL PLACED TO DR. ROD IN REGARDS TO THIS. ORDERED TO D/C MOBIC AND ALBUTEROL, CHANGE ELIQUIS TO Q12H.
--- NOTE | 2019-12-09 05:10 | NUR ---
PATIENT AWAKENS EASILY FOR ADMINISTRATION OF 0600 MEDICATION. TOLERATED WELL. CALL LIGHT IS WITHIN REACH.
[2019-12-09 06:21] LABS: BASO % 0.3 % (0.0-1.0); EOS % 0.2 % (1.0-4.0); LYMPH % 13.8 % (27.0-41.0); MEAN CELL VOLUME 87.9 fl (81.0-99.0); MEAN CORPUSCULAR HGB 26.9 pg (27.0-31.0); MEAN CORPUSCULAR HGB CONC 30.6 g/dl (33.0-37.0); MONO # 0.8 10*3/uL (0.1-1.0); MONO % 5.8 % (3.0-9.0); NEUT # 11.2 10*3/uL (2.3-7.9); NEUT % 79.5 % (47.0-73.0); PLATELET COUNT AUTOMATED 239 10*3/uL (130-400); RED BLOOD COUNT 3.87 10*6/uL (4.10-5.10); RED CELL DISTRI WIDTH 14.9 % (0-14.5); WHITE BLOOD COUNT 14.1 10*3/uL (4.8-10.8)
[2019-12-09 06:30] LABS: INTERNATIONAL NORM RATIO 1.1 (2.0-3.5)
[2019-12-09 06:44] LABS: ALBUMIN 2.9 gm/dl (3.1-4.5); BUN 13 mg/dl (7-24); CHLORIDE 109 mmol/L (98-107); POTASSIUM 3.9 mmol/L (3.5-5.1); SODIUM 140 mmol/L (136-145)
[2019-12-09 06:53] LABS: ALKALINE PHOSPHATASE 80 U/L (45-117); CHOLESTEROL 93 mg/dL (<200); CREATININE 1.01 mg/dL (0.55-1.02); HDL CHOLESTEROL 45 mg/dl (40-60); LDL CHOLESTEROL 36 mg/dL (9-159); SGOT/AST 6 IU/L (3-35); SGPT/ALT 8 U/L (12-78); TOTAL PROTEIN 6.4 gm/dL (6.4-8.2); TRIGLYCERIDES 59 mg/dl (<150); VLDL CHOLESTEROL 12 mg/dL (6-40)
[2019-12-09 08:00] VITALS: BP 118/64
--- NOTE | 2019-12-09 08:45 | NUR ---
PT RESTING IN BED WITH HOB ELEVATED. RESP-EASY AND REGULAR. TOLERATED ROUTINE MED WITH NO PROBLEM. OXYGEN IN USE. CALL LIGHT IN REACH. SEE SHIFT ASSESSMENT.
--- NOTE | 2019-12-09 09:00 | NUR ---
[employer] in to talk to patient. Patient states lives at home with family. There are many steps in the home. Physician: sarah owusu [facility] Home health services: none Patient's level of ADLs: MINIMAL ASSIST Patient has working utilities: all working DME: cane, walker, Follow-up physician's appointment after d/c: will be made by hospitalist nurse director upon discharge Does patient want to access PORTAL?: no Discharge plan discussed with patient, she states she lives at home, has a walker for ambulation and requires minimal assist with adls, she stated at this time she doesn't know of anything she needs, case management will see patient at a later time and discuss this further. JAI MATTHEWS
--- NOTE | 2019-12-09 09:10 | NUR ---
This nurse was with Daisy BRAR during bedside procedure. Pre and post photographs obtained at this time. Patient tolerated activity well. New dressing appilied per provider orders.
--- NOTE | 2019-12-09 09:46 | NUR ---
CALLED [facility] FOR CONSULT WITH CATHLEEN MITTAL. LEFT MESSAGE ON MACHINE.
--- NOTE | 2019-12-09 10:46 | NUR ---
CALLED DR. TAYLOR OFFICE LEFT MESSAGE FOR CONSULT.
--- NOTE | 2019-12-09 11:34 | NUR ---
BSG-269, SEE EMAR. NO C/O AT THIS TIME. CALL LIGHT IN [facility].
[2019-12-09 12:00] VITALS: BP 129/62
--- NOTE | 2019-12-09 15:50 | NUR ---
ASSISTED TO BATHROOM AND BACK TO BED. BSG-68, SKIN W/D. ORANGE JUICE GIVEN AND CRACKERS. ORDERED DINNER. CALL LIGHT IN REACH.SEE SHIFT ASSESSMENT.
[2019-12-09 16:00] VITALS: BP 144/60
--- NOTE | 2019-12-09 18:00 | NUR ---
RESTING IN BED. RESP-EASY AND REGULAR. CALL LIGHT IN REACH.
[2019-12-09 20:00] VITALS: BP 130/51
[2019-12-10] VITALS: BP 123/58
[2019-12-10 06:51] LABS: BASO % 0.5 % (0.0-1.0); EOS # 0.1 10*3/uL (0.0-0.4); EOS % 1.2 % (1.0-4.0); HEMATOCRIT 32.3 % (37.0-47.0); LYMPH # 1.9 10*3/uL (1.3-4.4); LYMPH % 21.6 % (27.0-41.0); MEAN CELL VOLUME 88.3 fl (81.0-99.0); MEAN CORPUSCULAR HGB CONC 30.7 g/dl (33.0-37.0); MEAN PLATELET VOLUME 11.6 fl (9.6-12.3); MONO # 0.6 10*3/uL (0.1-1.0); MONO % 7.2 % (3.0-9.0); NEUT % 69.2 % (47.0-73.0); PLATELET COUNT AUTOMATED 227 10*3/uL (130-400); RED BLOOD COUNT 3.66 10*6/uL (4.10-5.10); RED CELL DISTRI WIDTH 14.6 % (0-14.5); WHITE BLOOD COUNT 8.7 10*3/uL (4.8-10.8)
[2019-12-10 06:52] LABS: BUN 14 mg/dl (7-24); CHLORIDE 109 mmol/L (98-107); CREATININE 0.99 mg/dL (0.55-1.02); SODIUM 140 mmol/L (136-145)
[2019-12-10 08:00] VITALS: BP 110/50; BP 136/58
--- NOTE | 2019-12-10 09:00 | NUR ---
case management visits with patient, discussed with her a discharge plan with her including a short term care home for 5 days of rehab, 24 hour care and dressing changes and monitoring of her elbow wound. she decined. stated she would return home with her sister when discharged. also discussed with her [facility] and educated her on the services they provide. she was receptive to this, given choice of companies she chose [facility], will send a referral to [facility] to see patient when medically stable. case management will follow
[2019-12-10 12:00] VITALS: BP 134/51
--- NOTE | 2019-12-10 13:02 | NUR ---
case management faxed face to face and home health order to Yen at [facility]. will notify them when patient is discharged
[2019-12-10] MEDS ORDERED: OMNICEF300 MG PO (13:56)
[2019-12-10] MEDS ORDERED: DOXYCYCLINE100 M3 PO (13:56)
--- NOTE | 2019-12-10 14:05 | NUR ---
DR. Simon Fuentes resident working with Dr. Bello here and left prescriptions for antibiotics for dc.
--- NOTE | 2019-12-10 15:25 | NUR ---
Pt declined photos of wound to left elbow. States she has been waiting on being dc all day since the Dr saw her this morning and her son is waiting on her.
--- NOTE | 2019-12-10 15:28 | NUR ---
Pt dc via wheelchair with belongings.
[2019-12-10 15:42] VITALS: BP 130/56
== END 2019-12-10 15:28 | disposition home health service (06) | DRG 872 ==
LOC: ED 15:53 → EDHOLD 18:16 → 4E 18:16
PROVIDERS: Emergency Medicine; Hospitalist; Student in an Organized Health Care Education/Training Program; ADMIT Internal Medicine; ATTEND Internal Medicine
PROC: 0HBEXZZ Excision of Left Lower Arm Skin, External Approach (ICD-10-PCS; principal; 2019-12-09)
DX: A41.9 Sepsis, unspecified organism (principal); L03.114 Cellulitis of left upper limb; Z96.651 Presence of right artificial knee joint; J45.909 Unspecified asthma, uncomplicated; J44.9 Chronic obstructive pulmonary disease, unspecified; E11.40 Type 2 diabetes mellitus with diabetic neuropathy, unspecified; K57.90 Diverticulosis of intestine, part unspecified, without perforation or abscess without bleeding; E78.5 Hyperlipidemia, unspecified; S40.822A Blister (nonthermal) of left upper arm, initial encounter; R65.20 Severe sepsis without septic shock; R79.82 Elevated C-reactive protein (CRP); N18.31 Chronic kidney disease, stage 3a; D64.9 Anemia, unspecified; E11.65 Type 2 diabetes mellitus with hyperglycemia; E11.22 Type 2 diabetes mellitus with diabetic chronic kidney disease; E11.69 Type 2 diabetes mellitus with other specified complication; E11.21 Type 2 diabetes mellitus with diabetic nephropathy; I12.9 Hypertensive chronic kidney disease with stage 1 through stage 4 chronic kidney disease, or unspecified chronic kidney disease; L89.020 Pressure ulcer of left elbow, unstageable; Z88.6 Allergy status to analgesic agent; Z88.8 Allergy status to other drugs, medicaments and biological substances; Z90.710 Acquired absence of both cervix and uterus; Z81.8 Family history of other mental and behavioral disorders; Z82.49 Family history of ischemic heart disease and other diseases of the circulatory system; Z86.718 Personal history of other venous thrombosis and embolism; Z85.71 Personal history of Hodgkin lymphoma; Z86.711 Personal history of pulmonary embolism; Z87.891 Personal history of nicotine dependence; Z68.30 Body mass index [BMI] 30.0-30.9, adult; X58.XXXA Exposure to other specified factors, initial encounter; Y93.89 Activity, other specified; Y92.89 Other specified places as the place of occurrence of the external cause; Y99.8 Other external cause status

== ENCOUNTER 2020-02-13 15:26 | Emergency (ER) | payer MEDICARE, MEDICAID ==
[~2020-02-13] VITALS: Ht 157.4 cm; Wt 78.9 kg
[~2020-02-13 15:26] MED LIST changes: +DOXYCYCLINE100 M3 PO; +OMNICEF300 MG PO; +PHARMASSURE V500 MCG PO; +VENT7GM INH; +VITAMIN D3125 MCG PO
[2020-02-13 15:33] VITALS: BP 149/77
[2020-02-13] MEDS ORDERED: DOXYCYCLINE100 M3 PO (16:20)
== END 2020-02-13 16:24 | disposition home or self-care (01) ==
LOC: ED 15:26
DX: L03.114 Cellulitis of left upper limb (principal); Z88.5 Allergy status to narcotic agent; Z88.8 Allergy status to other drugs, medicaments and biological substances; Z79.899 Other long term (current) drug therapy; Z79.84 Long term (current) use of oral hypoglycemic drugs; Z79.82 Long term (current) use of aspirin

== ENCOUNTER → 2021-12-01 | Outpatient (CLI) | payer MEDICARE, MEDICAID | END | disposition home or self-care (01) | LOC: CARD 13:50 | PROVIDERS: ATTEND Internal Medicine | DX: I08.0 Rheumatic disorders of both mitral and aortic valves (principal); I95.1 Orthostatic hypotension ==

== ENCOUNTER → 2022-02-22 | Outpatient (CLI) | payer MEDICARE, MEDICAID ==
[2022-02-22 15:11] LABS: VITAMIN D, 25-HYDROXY 88.8 ng/mL (30-100)
[2022-02-23 08:07] LABS: IMMUNOGLOBULIN G, QNT 1188 mg/dL (586-1602); IMMUNOGLOBULIN M, QNT 66 mg/dL (26-217)
[2022-02-23 13:06] LABS: ANGIOTENSIN-CONVERTING ENZYME 42 U/L (14-82)
[2022-02-23 14:07] LABS: ALBUMIN 3.7 g/dL (2.9-4.4); ALPHA-1-GLOBULIN 0.4 g/dL (0.0-0.4); ALPHA-2-GLOBULIN 0.9 g/dL (0.4-1.0); BETA GLOBULIN 1.2 g/dL (0.7-1.3); GAMMA GLOBULIN 1.1 g/dL (0.4-1.8); GLOBULIN, TOTAL 3.6 g/dL (2.2-3.9); M-SPIKE Not Observed g/dL (Not Observed); SJOGREN ANTI-SS-A <0.2 AI (0.0-0.9); SJOREN AB, ANTI-SS-B <0.2 AI (0.0-0.9); TOTAL PROTEIN, SERUM 7.3 g/dL (6.0-8.5)
[2022-02-23 22:05] LABS: IMMUNOGLOBULIN D, QNT 5.72 mg/dL (<14.11)
[2022-02-26 19:06] LABS: ZINC, PLASMA 83 ug/dL (44-115)
== END | disposition home or self-care (01) ==
LOC: LAB 02:26 → MRI 13:00 → LAB 13:00
PROVIDERS: ATTEND Nurse Practitioner Family
DX: I67.82 Cerebral ischemia (principal); G62.9 Polyneuropathy, unspecified; R42 Dizziness and giddiness; Z85.71 Personal history of Hodgkin lymphoma

== ENCOUNTER → 2022-03-14 | Outpatient (CLI) | payer MEDICARE, MEDICAID | END | disposition home or self-care (01) | LOC: US 12:55 | PROVIDERS: ATTEND Nurse Practitioner Family | DX: I65.23 Occlusion and stenosis of bilateral carotid arteries (principal) ==

== ENCOUNTER → 2022-07-03 | Outpatient (CLI) | payer MEDICARE, MEDICAID ==
[2022-07-03 15:57] LABS: HEMATOCRIT 37.3 % (37.0-47.0); MEAN CORPUSCULAR HGB 29.7 pg (27.0-31.0); MEAN CORPUSCULAR HGB CONC 31.9 g/dl (33.0-37.0); MEAN PLATELET VOLUME 10.6 fl (9.6-12.3); RED BLOOD COUNT 4.01 10*6/uL (4.10-5.10); RED CELL DISTRI WIDTH 14.6 % (0-14.5); WHITE BLOOD COUNT 10.1 10*3/uL (4.8-10.8)
[2022-07-03 16:32] LABS: ALKALINE PHOSPHATASE 71 U/L (46-116); BUN 10 mg/dl (9-23); CHLORIDE 103 mmol/L (98-107); CHOLESTEROL 114 mg/dL (<200); LDL CHOLESTEROL 51 mg/dL (9-159); POTASSIUM 4.4 mmol/L (3.4-5.1); THYROID STIM HORMONE (HS) 1.418 uIU/ml (0.550-4.780); TRIGLYCERIDES 61 mg/dl (<150)
[2022-07-03 16:35] LABS: SGPT/ALT < 7 U/L (10-49)
== END | disposition home or self-care (01) ==
LOC: LAB 15:30
PROVIDERS: ATTEND Internal Medicine
DX: R41.0 Disorientation, unspecified (principal); E11.9 Type 2 diabetes mellitus without complications

== ENCOUNTER 2023-05-31 14:29 | Emergency (ER) | payer MEDICARE ==
[~2023-05-31] VITALS: Ht 162.5 cm; Wt 77.1 kg
[2023-05-31] MEDS ORDERED: AMITRIPTYLINE H10 M1 PO (14:45)
[2023-05-31] MEDS ORDERED: SINEMET 25-1001 EACH PO (14:45)
[2023-05-31 15:00] LABS: BASO # 0.1 10*3/uL (0.0-0.1); BASO % 0.6 % (0.0-1.0); EOS # 0.1 10*3/uL (0.0-0.4); EOS % 1.2 % (1.0-4.0); HEMATOCRIT 37.3 % (37.0-47.0); LYMPH # 1.3 10*3/uL (1.3-4.4); LYMPH % 12.9 % (27.0-41.0); MEAN CELL VOLUME 88.2 fl (81.0-99.0); MEAN CORPUSCULAR HGB 26.7 pg (27.0-31.0); MEAN CORPUSCULAR HGB CONC 30.3 g/dl (33.0-37.0); MEAN PLATELET VOLUME 10.7 fl (9.6-12.3); MONO # 0.6 10*3/uL (0.1-1.0); MONO % 5.7 % (3.0-9.0); NEUT # 7.8 10*3/uL (2.3-7.9); NEUT % 79.2 % (47.0-73.0); PLATELET COUNT AUTOMATED 254 10*3/uL (130-400); RED BLOOD COUNT 4.23 10*6/uL (4.10-5.10); RED CELL DISTRI WIDTH 14.9 % (0-14.5); WHITE BLOOD COUNT 9.8 10*3/uL (4.8-10.8)
[2023-05-31 15:18] LABS: POTASSIUM 4.4 mmol/L (3.4-5.1)
[2023-05-31] MEDS ORDERED: Acetaminophen/Oxycodone 5 MG/325 MG TABLET PO ONE (16:50)
[2023-05-31] MEDS ORDERED: PERCOCET 5-3251 EACH PO (17:58)
[2023-05-31 18:05] VITALS: BP 148/52
== END 2023-05-31 18:05 | disposition home or self-care (01) ==
LOC: ED 14:29
PROVIDERS: Physician Assistant Medical
DX: S32.019A Unspecified fracture of first lumbar vertebra, initial encounter for closed fracture (principal); J44.9 Chronic obstructive pulmonary disease, unspecified; E11.22 Type 2 diabetes mellitus with diabetic chronic kidney disease; N18.9 Chronic kidney disease, unspecified; J45.909 Unspecified asthma, uncomplicated; Z86.718 Personal history of other venous thrombosis and embolism; Z88.5 Allergy status to narcotic agent; Z88.8 Allergy status to other drugs, medicaments and biological substances; Z98.890 Other specified postprocedural states; Z90.710 Acquired absence of both cervix and uterus; Z87.891 Personal history of nicotine dependence; W19.XXXA Unspecified fall, initial encounter; Y93.89 Activity, other specified; Y92.009 Unspecified place in unspecified non-institutional (private) residence as the place of occurrence of the external cause; Y99.8 Other external cause status

== ENCOUNTER → 2023-06-08 | Outpatient (CLI) | payer MEDICARE ==
[~2023-06-08] MED LIST changes: +AMITRIPTYLINE H10 M1 PO; +PERCOCET 5-3251 EACH PO; +SINEMET 25-1001 EACH PO
== END | disposition home or self-care (01) ==
LOC: RAD 06-07 00:33
PROVIDERS: ATTEND Nurse Practitioner Family
DX: M25.522 Pain in left elbow (principal)

== ENCOUNTER → 2023-07-25 | Outpatient (CLI) | payer MEDICARE | END | disposition home or self-care (01) | LOC: MRI 00:11 | PROVIDERS: ATTEND Student in an Organized Health Care Education/Training Program | DX: S32.010A Wedge compression fracture of first lumbar vertebra, initial encounter for closed fracture (principal); S22.080A Wedge compression fracture of T11-T12 vertebra, initial encounter for closed fracture; M41.86 Other forms of scoliosis, lumbar region; M48.07 Spinal stenosis, lumbosacral region; M51.26 Other intervertebral disc displacement, lumbar region; X58.XXXA Exposure to other specified factors, initial encounter; Y93.89 Activity, other specified; Y92.89 Other specified places as the place of occurrence of the external cause; Y99.8 Other external cause status ==

== ENCOUNTER → 2024-03-27 | Outpatient (CLI) | payer OTHER | END | disposition home or self-care (01) | LOC: RAD 12:33 | PROVIDERS: ATTEND Nurse Practitioner Family | DX: S59.912A Unspecified injury of left forearm, initial encounter (principal); X58.XXXA Exposure to other specified factors, initial encounter; Y93.89 Activity, other specified; Y92.89 Other specified places as the place of occurrence of the external cause; Y99.8 Other external cause status ==

== ENCOUNTER → 2024-04-07 | Outpatient (CLI) | payer OTHER | END | disposition home or self-care (01) | LOC: MRI 01:47 | PROVIDERS: ATTEND Anesthesiology Pain Medicine | DX: M51.16 Intervertebral disc disorders with radiculopathy, lumbar region (principal); M47.26 Other spondylosis with radiculopathy, lumbar region; E11.9 Type 2 diabetes mellitus without complications; M54.50 Low back pain, unspecified; M46.1 Sacroiliitis, not elsewhere classified; M48.07 Spinal stenosis, lumbosacral region; M47.817 Spondylosis without myelopathy or radiculopathy, lumbosacral region; Z87.39 Personal history of other diseases of the musculoskeletal system and connective tissue ==

== ENCOUNTER 2024-08-11 13:06 | Emergency (ER) | payer OTHER ==
[~2024-08-11] VITALS: Ht 162.5 cm; Wt 75.0 kg
[~2024-08-11 13:06] MED LIST changes: +CARBIDOPA-LEVO1 EAC6 PO; +CEPHALEXIN500 M1 PO; +INCRUSE ELLI62.5 MCG INH; +JARDIANCE10 MG PO; +NEURONTIN300 MG PO; +NUPLAZID34 MG PO; +SYMB160 INH
[2024-08-11] MEDS ORDERED: Ondansetron Hydrochloride 4 MG/2 ML VIAL IV ONE (13:20)
[2024-08-11] MEDS ORDERED: SODIUM CHLORIDE 0.9% 1,000 ML IV ONE (13:25)
[2024-08-11 13:42] LABS: BASO # 0.1 10*3/uL (0.0-0.1); BASO % 0.8 % (0.0-1.0); EOS # 0.1 10*3/uL (0.0-0.4); EOS % 0.5 % (1.0-4.0); HEMATOCRIT 35.8 % (37.0-47.0); MEAN CORPUSCULAR HGB 25.1 pg (27.0-31.0); MEAN CORPUSCULAR HGB CONC 29.9 g/dl (33.0-37.0); MEAN PLATELET VOLUME 11.3 fl (9.6-12.3); MONO # 0.8 10*3/uL (0.1-1.0); MONO % 5.7 % (3.0-9.0); NEUT # 10.6 10*3/uL (2.3-7.9); NEUT % 79.5 % (47.0-73.0); PLATELET COUNT AUTOMATED 284 10*3/uL (130-400); RED BLOOD COUNT 4.26 10*6/uL (4.10-5.10); RED CELL DISTRI WIDTH 17.3 % (0-14.5); WHITE BLOOD COUNT 13.3 10*3/uL (4.8-10.8)
[2024-08-11 13:53] LABS: ACT PARTIAL THROMBO TIME 25.4 SECONDS (20.0-32.1)
[2024-08-11 14:19] LABS: ALKALINE PHOSPHATASE 80 U/L (46-116); BUN 25 mg/dl (9-23); CHLORIDE 106 mmol/L (98-107); LIPASE 43 U/L (12-53); POTASSIUM 4.2 mmol/L (3.4-5.1); TOTAL PROTEIN 6.8 gm/dL (6.0-8.0)
[2024-08-11 14:20] LABS: SGPT/ALT < 7 U/L (5-49)
[2024-08-11 15:08] VITALS: BP 137/47
[2024-08-11 16:28] LABS: BILIRUBIN Negative (Negative); BLOOD Negative (Negative); CLARITY Clear (Clear); COLOR Yellow (Yellow); GLUCOSE 3+ (Negative); KETONE Negative (Negative); LEUKO ESTERASE Negative (Negative); NITRITE Negative (Negative); PH 5.5 (4.5-8.0); SPECIFIC GRAVITY 1.015 (1.001-1.030); UROBILINOGEN 0.2 E.U./dl (0.0-1.0)
[2024-08-11 16:55] LABS: YEAST 1+
== END 2024-08-11 17:01 | disposition home or self-care (01) ==
LOC: ED 13:06
PROVIDERS: Internal Medicine
DX: R00.1 Bradycardia, unspecified (principal); I10 Essential (primary) hypertension; E11.9 Type 2 diabetes mellitus without complications; E78.00 Pure hypercholesterolemia, unspecified; J44.9 Chronic obstructive pulmonary disease, unspecified; J45.909 Unspecified asthma, uncomplicated; Z79.82 Long term (current) use of aspirin; Z79.899 Other long term (current) drug therapy; Z88.1 Allergy status to other antibiotic agents; Z88.5 Allergy status to narcotic agent; Z88.8 Allergy status to other drugs, medicaments and biological substances; Z90.710 Acquired absence of both cervix and uterus; Z98.890 Other specified postprocedural states

== ENCOUNTER → 2024-09-02 | Outpatient (CLI) | payer OTHER ==
[~2024-09-02] MED LIST changes: +BARIUM SULFATE 98% 340 GM BOT PO ONE
== END ==
LOC: RAD/SH 07-15 10:00
PROVIDERS: ATTEND Nurse Practitioner Family
DX: R13.10 Dysphagia, unspecified (principal)

== ENCOUNTER → 2024-09-25 | Outpatient (CLI) | payer OTHER ==
[~2024-09-25] MED LIST changes: +AVPAK AZITHROM250 M1 PO; -BARIUM SULFATE 98% 340 GM BOT PO ONE; +CEFDINIR300 MG PO; +OMEPRAZOLE MAGN20 MG PO
== END | disposition home or self-care (01) ==
LOC: CT 02:59
PROVIDERS: ATTEND Internal Medicine Critical Care Medicine
DX: J43.9 Emphysema, unspecified (principal); R91.8 Other nonspecific abnormal finding of lung field; I25.10 Atherosclerotic heart disease of native coronary artery without angina pectoris; K31.89 Other diseases of stomach and duodenum; J44.9 Chronic obstructive pulmonary disease, unspecified; I26.99 Other pulmonary embolism without acute cor pulmonale; J30.89 Other allergic rhinitis; J45.50 Severe persistent asthma, uncomplicated; Z68.29 Body mass index [BMI] 29.0-29.9, adult; Z87.891 Personal history of nicotine dependence

== ENCOUNTER 2024-09-26 21:28 | Observation (INO) | payer OTHER ==
[~2024-09-26] VITALS: Ht 162.6 cm; Wt 70.3 kg
[~2024-09-26 21:28] MED LIST changes: -AVPAK AZITHROM250 M1 PO; -CEFDINIR300 MG PO; -OMEPRAZOLE MAGN20 MG PO
[2024-09-26 21:39] VITALS: BP 164/76
[2024-09-26] MEDS ORDERED: OMEPRAZOLE MAGN20 MG PO (21:44)
[2024-09-26] MEDS ORDERED: Albuterol Sulf/Ipratropium 3 ML VIAL NEB ONE (22:50)
[2024-09-26 23:28] LABS: BASO # 0.1 10*3/uL (0.0-0.1); BASO % 0.5 % (0.0-1.0); EOS # 0.0 10*3/uL (0.0-0.4); EOS % 0.2 % (1.0-4.0); MEAN CELL VOLUME 85.3 fl (81.0-99.0); MEAN CORPUSCULAR HGB 25.4 pg (27.0-31.0); MEAN PLATELET VOLUME 11.4 fl (9.6-12.3); MONO # 0.6 10*3/uL (0.1-1.0); MONO % 5.3 % (3.0-9.0); NEUT # 8.8 10*3/uL (2.3-7.9); NEUT % 77.5 % (47.0-73.0); NUCLEATED RED BLOOD CELL 0.0 % (0.0-0.0); NUCLEATED RED BLOOD CELL 0.0 10*3/uL (0.0-0.0); PLATELET COUNT AUTOMATED 233 10*3/uL (130-400); RED CELL DISTRI WIDTH 19.2 % (0-14.5)
[2024-09-26 23:47] LABS: BUN 18.0 mg/dl (9-23)
[2024-09-26 23:48] LABS: BILIRUBIN Negative (Negative); BLOOD Negative (Negative); CLARITY Cloudy (Clear); COLOR Yellow (Yellow); KETONE Trace (Negative); LEUKO ESTERASE 1+ (Negative); NITRITE Negative (Negative); PH 5.5 (4.5-8.0); SPECIFIC GRAVITY 1.015 (1.001-1.030); UROBILINOGEN 0.2 E.U./dl (0.0-1.0)
[2024-09-26 23:56] LABS: BACTERIA 1+; YEAST 1+
[2024-09-27] VITALS (7 sets, daily range): BP systolic 11–162; BP diastolic 43–95
[2024-09-27] MEDS ORDERED: ACETAMINOPHEN 325 MG TAB PO PRN (02:50)
[2024-09-27] MEDS ORDERED: Ondansetron Hydrochloride 4 MG/2 ML VIAL IV PRN (02:50)
[2024-09-27] MEDS ORDERED: Albuterol Sulf/Ipratropium 3 ML VIAL NEB PRN (02:55)
[2024-09-27] MEDS ORDERED: ELIQUIS5 M1 PO (05:26)
[2024-09-27 06:02] LABS: BASO # 0.1 10*3/uL (0.0-0.1); BASO % 0.6 % (0.0-1.0); EOS # 0.0 10*3/uL (0.0-0.4); EOS % 0.4 % (1.0-4.0); MEAN CELL VOLUME 84.4 fl (81.0-99.0); MEAN CORPUSCULAR HGB 25.6 pg (27.0-31.0); MEAN PLATELET VOLUME 11.6 fl (9.6-12.3); MONO # 0.8 10*3/uL (0.1-1.0); MONO % 6.8 % (3.0-9.0); NEUT # 7.7 10*3/uL (2.3-7.9); NEUT % 69.6 % (47.0-73.0); NUCLEATED RED BLOOD CELL 0.0 % (0.0-0.0); NUCLEATED RED BLOOD CELL 0.0 10*3/uL (0.0-0.0); PLATELET COUNT AUTOMATED 215 10*3/uL (130-400); RED CELL DISTRI WIDTH 19.2 % (0-14.5)
[2024-09-27 07:04] LABS: BUN 18.0 mg/dl (9-23); FREE T4 0.93 ng/dl (0.89-1.76)
[2024-09-27] MEDS ORDERED: APIXABAN 5 MG TAB PO SCH ×2 (10:00)
[2024-09-27] MEDS ORDERED: FUROSEMIDE 40 MG TAB PO SCH (10:00)
[2024-09-27] MEDS ORDERED: CEFDINIR 300 MG CAP PO SCH (10:00)
[2024-09-27] MEDS ORDERED: AZITHROMYCIN 250 MG TAB PO ONE (13:15)
[2024-09-28] VITALS: BP 157/35
[2024-09-28 07:10] VITALS: BP 144/38
[2024-09-28 12:00] VITALS: BP 138/56
[2024-09-28] MEDS ORDERED: CEFDINIR300 MG PO (13:10)
[2024-09-28] MEDS ORDERED: AVPAK AZITHROM250 M1 PO (13:10)
[2024-09-28] MEDS ORDERED: PREDNISONE50 MG PO (13:10)
[2024-09-29] MEDS ORDERED: AZITHROMYCIN 250 MG TAB PO SCH (10:00)
== END 2024-09-28 17:13 | disposition home or self-care (01) ==
LOC: ED 21:28 → 4E 09-27 02:24 → EDHOLD 09-27 02:24 → 4E 09-27 03:09
PROVIDERS: Emergency Medicine; Student in an Organized Health Care Education/Training Program; ADMIT Internal Medicine; ATTEND Internal Medicine
DX: N39.0 Urinary tract infection, site not specified (principal); D72.829 Elevated white blood cell count, unspecified; D64.9 Anemia, unspecified; R00.1 Bradycardia, unspecified; J44.1 Chronic obstructive pulmonary disease with (acute) exacerbation; G90.9 Disorder of the autonomic nervous system, unspecified; C81.90 Hodgkin lymphoma, unspecified, unspecified site; E11.65 Type 2 diabetes mellitus with hyperglycemia; E11.22 Type 2 diabetes mellitus with diabetic chronic kidney disease; N18.32 Chronic kidney disease, stage 3b; J45.909 Unspecified asthma, uncomplicated; V89.2XXA Person injured in unspecified motor-vehicle accident, traffic, initial encounter; Y92.89 Other specified places as the place of occurrence of the external cause; Y93.89 Activity, other specified; Y99.8 Other external cause status